=== PATIENT | female | born 1935 | race Caucasian/White ===

== ENCOUNTER 2022-03-27 19:59 | Emergency (ER) | payer OTHER ==
[~2022-03-27] VITALS: Ht 152.4 cm; Wt 63.5 kg
[2022-03-27 20:05] VITALS: BP_SYST 165
[2022-03-27] MEDS ORDERED: ACET-2634 PO (21:36)
[2022-03-27 22:46] VITALS: BP_SYST 155
[2022-03-28] MEDS ORDERED: MULT-1150 PO (02:47)
[2022-03-28] MEDS ORDERED: LOSA50TA28 PO (02:48)
[2022-03-28] MEDS ORDERED: FURO-150 PO (03:04)
[2022-03-28] MEDS ORDERED: ALEN70TA3 PO (03:04)
[2022-03-28] MEDS ORDERED: SIMV-341 PO (03:05)
[2022-03-28] MEDS ORDERED: COR3.125 PO (03:06)
[2022-03-28] MEDS ORDERED: BRI.2% EACH EYE (03:07)
[2022-03-28] MEDS ORDERED: XALEYE OP (03:08)
[2022-03-28] MEDS ORDERED: DORZ10DR9 EACH EYE (03:09)
[2022-03-28] MEDS ORDERED: NETA2.5D LEFT EYE (03:10)
== END 2022-03-27 22:46 | disposition home or self-care (01) ==
LOC: SED 19:59
DX: S82.101A Unspecified fracture of upper end of right tibia, initial encounter for closed fracture (principal); S89.92XA Unspecified injury of left lower leg, initial encounter; Z79.899 Other long term (current) drug therapy; W01.0XXA Fall on same level from slipping, tripping and stumbling without subsequent striking against object, initial encounter; Y93.89 Activity, other specified; Y92.89 Other specified places as the place of occurrence of the external cause; Y99.8 Other external cause status
CPT/HCPCS: 99283

== ENCOUNTER 2022-03-27 23:53 | Inpatient (IN) | payer OTHER ==
[~2022-03-27] VITALS: Ht 154.9 cm; Wt 72.6 kg
[~2022-03-27 23:53] MED LIST: ACET-2634 PO
[2022-03-28 00:04] VITALS: BP_SYST 159
--- NOTE | 2022-03-28 02:04 | NUR ---
Clothes removed, pt placed in gown for US. Noted with brace to right leg. Pt needs 2 person assist to move from wheelchair to bed. Pt TELLER, hearing aid to left ear. VSS.
[2022-03-28 02:25] LABS: BASOPHILS # (AUTO) 0.1 K/uL (0.0-0.2); BASOPHILS % (AUTO) 0.4 % (0.0-2.0); EOSINOPHILS % (AUTO) 0.3 % (0.0-4.0); HEMATOCRIT 39.5 % (36-48); HEMOGLOBIN 13.4 g/dL (12.0-16.0); LYMPHOCYTES # (AUTO) 1.5 K/uL (1.0-5.5); LYMPHOCYTES % (AUTO) 10.8 % (20.5-51.5); MEAN CORPUSCULAR HEMOGLOBIN 29 pg (27-31); MEAN CORPUSCULAR HGB CONC 34 % (32-36); MEAN CORPUSCULAR VOLUME 87 fL (79.0-98.0); MONOCYTES % (AUTO) 7.1 % (1.7-9.3); NEUTROPHILS # (AUTO) 11.1 K/uL (1.8-7.7); NEUTROPHILS % (AUTO) 81.4 % (40.0-70.0); PLATELET COUNT (AUTO) 257 K/uL (130-430); RED BLOOD CELL COUNT(AUTO) 4.54 MIL/uL (4.2-6.2); WHITE BLOOD COUNT (AUTO) 13.6 K/uL (4.8-10.8)
[2022-03-28 02:37] LABS: ANION GAP 7 (5-15); CALCIUM 9.6 mg/dL (8.4-11.0); CHLORIDE 102 mmol/L (98-107); CREATININE 0.99 mg/dL (0.55-1.30); GLUCOSE 132 mg/dL (70-99); POTASSIUM 3.4 mmol/L (3.5-5.1); UREA NITROGEN, BLOOD 16 mg/dL (8-21)
[2022-03-28] MEDS ORDERED: MULT-1150 PO (02:47)
[2022-03-28] MEDS ORDERED: LOSA50TA28 PO (02:48)
[2022-03-28 02:53] LABS: ALANINE AMINOTRANSFERASE 24 U/L (12-78); ALBUMIN 3.4 g/dL (3.4-4.8); ASPARTATE AMINOTRANSFERASE 25 U/L (10-37); TOTAL BILIRUBIN 0.6 mg/dL (0.0-1.0)
--- NOTE | 2022-03-28 02:53 | NUR ---
COVID swab collected and sent to lab.
[2022-03-28] MEDS ORDERED: FURO-150 PO (03:04)
[2022-03-28] MEDS ORDERED: ALEN70TA3 PO (03:04)
[2022-03-28] MEDS ORDERED: SIMV-341 PO (03:05)
[2022-03-28] MEDS ORDERED: COR3.125 PO (03:06)
[2022-03-28] MEDS ORDERED: BRI.2% EACH EYE (03:07)
[2022-03-28] MEDS ORDERED: XALEYE OP (03:08)
[2022-03-28] MEDS ORDERED: DORZ10DR9 EACH EYE (03:09)
[2022-03-28] MEDS ORDERED: NETA2.5D LEFT EYE (03:10)
--- NOTE | 2022-03-28 06:10 | NUR ---
Admit bed requested Patient will be admitted to care of [facility] Admitted to MS unit. Diagnosis Leg Swelling, Intractable Rt Knee Pain Inpatient (Yes or No) yes Observation (Yes or No) no Orientation concerns or request close to nursing station (Yes or No) yes Covid Status negative On vent or bipap no Isolation requirements no Needs a sitter no From Home (Yes or if No enter name of facility) yes Requires Dialysis (Yes or No) no Med Rec Completed (Yes of No) Yes
--- NOTE | 2022-03-28 07:59 | NUR ---
Patient provided breakfast tray at bedside.
--- NOTE | 2022-03-28 08:52 | NUR ---
ACCORDING TO NIGHTSHIFT, DR KUSH BRAGA WAS CORRESPONDENCE ANALYST FOR [facility] AND NOT ANSWERING PAGES DR KUSH KHAN WAS THEN PAGED THROUGH [facility] AND SHE PUT ORDERS IN FOR THE PATIENT DR KUSH KHAN IS SUPSPENDED. SPOKE WITH HER AND SHE SAID TO PUT ALL ORDERS UNDER DR KUSH BRAGA THEN CALLED DR KUSH BRAGA TO CLARIFY THAT IT WAS OK TO DO SO, ALL ORDERS WERE APPROVED TO BE TRANSFERED TO DR KUSH BRAGA FROM DR KUSH KHAN DUE TO DR KUSH KHAN BEING SUSPENDED.
[2022-03-28] MEDS: ENOXAPARIN SODIUM 30 MG/0.3 ML SYRINGE SUBCUT SCH (09:13)
--- NOTE | 2022-03-28 10:11 | NUR ---
Patient will be admitted to care of MD Dominique. Admitted to Med Surg unit. Will go to room 121A. Belongings list completed. Complete and up to date summary report printed. SBAR report to be given at bedside with opportunity for questions.
--- NOTE | 2022-03-28 10:12 | NUR ---
CONSULTATION PAGED REASON FOR CONSULTATION:INTACTABLE KNEE PAIN WAS CONSULT CALLED?Y -PERSON WHO WAS NOTIFIED:TITA BARRETO VOICEMAIL LEFT AT [phone] CONSULTING PHYSICIAN:JAQUELIN BARRETO DRYWALL FINISHER SPECIALTY:ORTHO DRYWALL FINISHER PHONE NUMBER:[phone] REQUESTING PHYSICIAN:OMI FERRELL
[2022-03-28 10:20] VITALS: BP_SYST 152
--- NOTE | 2022-03-28 10:20 | NUR ---
ADMISSION: PATIENT ARRIVED TO ROOM 121C IN A STABLE CONDITION FROM ER. PATIENT IS AAOX4 WITH EPISODE OF FORGETFULNESS. ABLE TO MAKE NEEDS KNOWN. NO C/O DISTRESS OR PAIN AT THIS TIME. RLE WITH IMMOBILIZER IN PLACED. IV TO THE LAC 22G INTACT AND PATENT. [facility] AND WEARS HEARING AID TO BOTH EARS BUT ONLY THE L EAR HEARING AID NOTED. PER PATIENT, R EAR HEARING AID HAS BEEN LOST AT HOME. SKIN ASSESSMENT PERFORMED-NO PRESSURE ULCER NOTED. ABLE TO MOVE BUE W/O COMPLICATION. BLE WEAKNESS NOTED. EXPLAINED POC AND PATIENT VERBALIZED UNDERSTANDING. BED IN LOW AND LOCK POSITION. BED ALARM ON. CALL LIGHT AND BESIDE TABLE WITHIN REACH. ALL NEEDS MET AT THIS TIME.
[2022-03-28] MEDS ORDERED: NEO/POLYMYX B SULF/DEXAMETH 5 ML OPHT. DROPS.SUSP OP ONE (11:15)
--- NOTE | 2022-03-28 11:36 | NUR ---
CONSULTATION PAGED REASON FOR CONSULTATION:KNEE PAIN WAS CONSULT CALLED?Y -PERSON WHO WAS NOTIFIED:BJ CONSULTING PHYSICIAN:FERNANDA PEARSON JACQUARD LOOM HEDDLES TIER SPECIALTY:KNEE PAIN JACQUARD LOOM HEDDLES TIER PHONE NUMBER:[phone] REQUESTING PHYSICIAN:YUNIOR FERMIN
[2022-03-28] MEDS: NEO/POLYMYX B SULF/DEXAMETH 5 ML OPHT. DROPS.SUSP OP SCH ×3 (12:00→23:53)
[2022-03-28] MEDS ORDERED: NEO/POLYMYX B SULF/DEXAMETH 5 ML OPHT. DROPS.SUSP OP SCH (12:00)
--- NOTE | 2022-03-28 12:06 | NUR ---
FAX H&P TO OUTSIDE CM: FAXED TO MANUEL SILVA FROM [facility]. XRAY AND VENOUS DOPPLER PENDING RESULT. CANNOT PRINT RESULT.
--- NOTE | 2022-03-28 13:04 | NUR ---
CALLED DIANNE CALLED AT SPOKE WITH DR.JAMAL PAUL AAMIR CARE ATTENDANT.
[2022-03-28] MEDS ORDERED: POTASSIUM CHLORIDE 20 MEQ TAB.PRT.SR PO ONE (13:30)
[2022-03-28 17:36] VITALS: BP_SYST 158
--- NOTE | 2022-03-28 18:47 | NUR ---
CLOSING NOTES: PATIENT IS RESTING IN BED QUIETLY WATCHING TV. NO ADDITIONAL DISTRESS NOTED. ALL NEEDS MET. CALL LIGHT WITHIN REACH. STABLE CONDITION AT THIS TIME.
[2022-03-28 19:20] VITALS: BP_SYST 148
--- NOTE | 2022-03-28 19:20 | NUR ---
PM ASSESSMENT; -Pt is resting in bed comfortably. Pt denies any chest pain,sob,or any acute distress. Discussed poc,all safety measures,not to get OOB by self to use call light for assistance, pt is poor concentration, but pt is able to show how to use call light for assistance. Bed alarmed, side rails x3, call light w/in reach. Cont to monitor pt.
--- NOTE | 2022-03-29 00:30 | NUR ---
ROUNDS; -Pt is resting in bed comfortably. NO s/s any pain,sob,or any acute distress noted. Bed alarmed, call light w/in reach. Side rails x3. cont to monitor pt.
[2022-03-29 01:20] VITALS: BP_SYST 152
--- NOTE | 2022-03-29 02:00 | NUR ---
ROUNDS; -Pt is asleep. NO s/s any pain,sob,or any acute distress noted. Bed alarmed, call light w/in reach. Side rails x3. cont to monitor pt.
--- NOTE | 2022-03-29 04:00 | NUR ---
ROUNDS; -Pt is still asleep. NO s/s any pain,sob,or any acute distress noted. Bed alarmed, call light w/in reach. Side rails x3. cont to monitor pt.
[2022-03-29] MEDS: NEO/POLYMYX B SULF/DEXAMETH 5 ML OPHT. DROPS.SUSP OP SCH ×4 (06:41→23:40)
[2022-03-29 06:57] LABS: BASOPHILS # (AUTO) 0.1 K/uL (0.0-0.2); BASOPHILS % (AUTO) 0.6 % (0.0-2.0); EOSINOPHILS # (AUTO) 0.3 K/uL (0.0-0.4); EOSINOPHILS % (AUTO) 2.8 % (0.0-4.0); HEMATOCRIT 33.4 % (36-48); HEMOGLOBIN 11.9 g/dL (12.0-16.0); LYMPHOCYTES # (AUTO) 2.4 K/uL (1.0-5.5); LYMPHOCYTES % (AUTO) 25.8 % (20.5-51.5); MEAN CORPUSCULAR HEMOGLOBIN 31 pg (27-31); MEAN CORPUSCULAR HGB CONC 36 % (32-36); MEAN CORPUSCULAR VOLUME 86 fL (79.0-98.0); MONOCYTES # (AUTO) 0.8 K/uL (0.0-1.0); NEUTROPHILS # (AUTO) 5.7 K/uL (1.8-7.7); NEUTROPHILS % (AUTO) 61.8 % (40.0-70.0); PLATELET COUNT (AUTO) 209 K/uL (130-430); RED BLOOD CELL COUNT(AUTO) 3.87 MIL/uL (4.2-6.2); RED CELL DISTRIBUTION WIDTH 13.1 % (9.0-15.0); WHITE BLOOD COUNT (AUTO) 9.3 K/uL (4.8-10.8)
--- NOTE | 2022-03-29 07:23 | NUR ---
CLOSING NOTES; -Pt is still asleep. NO s/s any pain,sob,or any acute distress noted. Bed alarmed, call light w/in reach. Side rails x3. Will endorse to next nurse to cont care.
[2022-03-29 07:26] LABS: ALANINE AMINOTRANSFERASE 20 U/L (12-78); ALBUMIN 2.7 g/dL (3.4-4.8); ANION GAP 6 (5-15); ASPARTATE AMINOTRANSFERASE 24 U/L (10-37); CALCIUM 8.8 mg/dL (8.4-11.0); CHLORIDE 102 mmol/L (98-107); CREATININE 0.76 mg/dL (0.55-1.30); GLUCOSE 96 mg/dL (70-99); POTASSIUM 3.9 mmol/L (3.5-5.1); TOTAL BILIRUBIN 0.5 mg/dL (0.0-1.0); UREA NITROGEN, BLOOD 13 mg/dL (8-21)
[2022-03-29 08:00] VITALS: BP_SYST 123
[2022-03-29] MEDS: ENOXAPARIN SODIUM 30 MG/0.3 ML SYRINGE SUBCUT SCH (09:39)
[2022-03-29 12:00] VITALS: BP_SYST 142
[2022-03-29 16:00] VITALS: BP_SYST 132
[2022-03-29] MEDS ORDERED: MULT-1150 PO (19:14)
[2022-03-29 19:20] VITALS: BP_SYST 145
--- NOTE | 2022-03-29 19:20 | NUR ---
endorsed to and given to JAILYN Alva, pt's own med for macular health. requested her to call MD to get order to continue the medication.
[2022-03-29 23:40] VITALS: BP_SYST 139
--- NOTE | 2022-03-29 23:40 | NUR ---
ROUNDS; -Pt is resting in bed comfortably. VS stable. Pt is cleaned and dry. NO s/s any pain,sob,or any acute distress noted. Bed alarmed, call light w/in reach. Side rails x3. cont to monitor pt.
--- NOTE | 2022-03-30 02:02 | NUR ---
ROUNDS; -Pt is still asleep. NO s/s any pain,sob,or any acute distress noted. Bed alarmed, call light w/in reach. Side rails x3. cont to monitor pt.
--- NOTE | 2022-03-30 04:03 | NUR ---
ROUNDS; -Pt is still asleep. NO s/s any pain,sob,or any acute distress noted. Bed alarmed, call light w/in reach. Side rails x3. cont to monitor pt.
[2022-03-30] MEDS: NEO/POLYMYX B SULF/DEXAMETH 5 ML OPHT. DROPS.SUSP OP SCH ×4 (05:06→23:50)
--- NOTE | 2022-03-30 07:06 | NUR ---
CLOSING NOTES; -Pt is still asleep. NO s/s any pain,sob,or any acute distress noted. Bed alarmed, call light w/in reach. Side rails x3. Will endorse to next nurse to cont care and to call MD regarding vitamin medication for eye at breakfast. Addendum: 03/30/22 at 1380 by [place] JAILYN Miller RN LATE ENTRY-ADDITIONAL NOTES--ENDORSED TO [facility] TO CONT CARE
[2022-03-30 08:00] VITALS: BP_SYST 122
[2022-03-30] MEDS: ENOXAPARIN SODIUM 30 MG/0.3 ML SYRINGE SUBCUT SCH (09:38)
[2022-03-30 12:00] VITALS: BP_SYST 140
[2022-03-30 16:00] VITALS: BP_SYST 126
[2022-03-30 19:00] VITALS: BP_SYST 126
--- NOTE | 2022-03-30 19:15 | NUR ---
change of shift.pt.presents quiescent affect;calm.pt.presents confused loc status.:pt.oriented to date/time.pt.presents general status stable.respiratory status stable;unlabored@room air.pt.presents iv access intact;patent;iv lock.pt.presents bedrest activity status.pt.presents incontinence:bladder/bowel.call light/telephone w/in access of the pt.
[2022-03-30 20:00] VITALS: BP_SYST 126
--- NOTE | 2022-03-30 20:00 | NUR ---
pt.assessed.v/s assessed values wnl.no c/o pain,nausea.pt.assessed for cleanliness.pt.cleaned/repositioned.pt.apprised that snacks/beverages are available w/in the shift.pt.confuse.no requests posited@this hour.call light/telephone place w/in access of the pt.
--- NOTE | 2022-03-30 22:00 | NUR ---
pt.assessed.pt.quiescent;somnolent.per flacc pain mgx pt.absent facial grimaces/body posturing.pt.assessed for cleanliness. pt.repositioned.call light/telephone placed w/in access of the pt.
--- NOTE | 2022-03-31 | NUR ---
pt.assessed.v/s assessed values wnl. no c/o pain,nausea.i have applied the eye gtts;1 per eye.no c/o pain,nausea. no requests posited@this hour.pt.assessed for cleanliness.pt.repositioned.call light/telephone placed w/in access of the pt.
[2022-03-31 00:42] VITALS: BP_SYST 129
--- NOTE | 2022-03-31 02:00 | NUR ---
pt.assessed.pt.quiescent;somnolent.per flacc pain mgx pt.absent facial grimaces/body posturing.pt.assessed for cleanliness. pt.repositioned.call light/telephone placed w/in access of the pt.
--- NOTE | 2022-03-31 04:00 | NUR ---
pt.assessed;pt.quiescent;somnolent.per flacc pain mgx pt.absent facial grimaces/body posturing.pt.assessed for cleanliness.pt.repositioned.call light/telephone placed w/in access of the pt.
[2022-03-31] MEDS: NEO/POLYMYX B SULF/DEXAMETH 5 ML OPHT. DROPS.SUSP OP SCH ×2 (05:48→12:07)
--- NOTE | 2022-03-31 06:00 | NUR ---
pt.assessed.pt.assessed for cleanliness.pt.cleaned/repositioned.no c/o pain,nausea.i have administered the eye drops: 1 gtt/both eyes.no requests posited@this hour.call light/telephone placed w/in access of the pt.
[2022-03-31] MEDS: ENOXAPARIN SODIUM 30 MG/0.3 ML SYRINGE SUBCUT SCH (09:00)
[2022-03-31 11:38] VITALS: BP_SYST 169
[2022-03-31 16:11] VITALS: BP_SYST 157
[2022-03-31] MEDS ORDERED: NEO/5DRO7 OP (16:30)
[2022-03-31 17:00] VITALS: BP_SYST 157
--- NOTE | 2022-04-01 11:13 | NUR ---
PHYSICAL THERAPY CO-SIGN The Physical Therapy Progress Notes documented by [employer] Compounder have been reviewed. Reviewed/Co-Signed by: Deni Rodriguez Documentation Done by: BERTHA MEDELLIN PTA Addendum: 04/01/22 at 1114 by Deni Rodriguez PT Amended: Links added.
== END 2022-03-31 17:42 | DRG 121 ==
LOC: SED 23:53 → SMU 03-28 09:23
PROVIDERS: ADMIT Internal Medicine; ATTEND Internal Medicine
DX: H44.001 Unspecified purulent endophthalmitis, right eye (principal); R65.10 Systemic inflammatory response syndrome (SIRS) of non-infectious origin without acute organ dysfunction; M17.11 Unilateral primary osteoarthritis, right knee; M81.0 Age-related osteoporosis without current pathological fracture; M25.561 Pain in right knee; I10 Essential (primary) hypertension; E78.5 Hyperlipidemia, unspecified; Z20.822 Contact with and (suspected) exposure to COVID-19; Z88.8 Allergy status to other drugs, medicaments and biological substances; Z79.899 Other long term (current) drug therapy; Z79.1 Long term (current) use of non-steroidal anti-inflammatories (NSAID)
CPT/HCPCS: 36415; 73560-TC; 80053; 82962; 83735; 85025; 93971; 96372; 97110-GP; 97116-GP; 97530-GP; 99285; J1650